=== PATIENT | female | born 1995 | race Hispanic/Latino ===

== ENCOUNTER 2022-04-18 19:45 | Inpatient (IN) | payer OTHER, SELFPAY ==
[2022-04-18 19:50] VITALS: BMI 26.6
[2022-04-18 20:21] VITALS: PULSE 111; O2SAT 97
[2022-04-18 20:23] VITALS: BP 119/71; PULSE 98
[2022-04-18 20:35] VITALS: TEMP 36.6
[2022-04-18 21:00] LABS: Absolute Lymphocyte Count 1.65 X10^3/uL (0.83-4.51); Absolute Neutrophil Count 7.8 X10^3/uL (2.0-7.7); Basophil# 0.02 X10^3/uL; Basophil% 0.2 % (0-1); Eosinophil# 0.07 X10^3/uL; Eosinophils% 0.7 % (0-5); Hematocrit 37.4 % (37-47); Hemoglobin 11.9 g/dL (12.0-15.0); Lymphocyte # 1.65 X10^3/ul (0.83-4.51); Lymphocyte % 16.2 % (19-41); Mean Corp Hgb Conc 31.8 g/dL (32-36); Mean Corpuscular Hgb 27.9 pg (27.0-32.0); Mean Corpuscular Volume 87.6 fL (81-99); Mean Platelet Vol. 12.2 fl (6.2-12.0); Monocyte# 0.53 X10^3/uL; Monocyte% 5.2 % (0-10); NRBC Flagged by Analyzer 0 % (0-5); Neutrophil # 7.82 X10^3/uL (2.7-7.7); Neutrophil % 76.8 % (47-70); Platelet Count 210 K/mm3 (150-450); RBC Distribution Width CV 14.6 % (11.6-14.6); RBC Distribution Width SD 46.7 fl (35.1-43.9); Red Blood Count 4.27 M/mm3 (4.2-5.4); White Blood Count 10.2 K/mm3 (4.4-11.0)
[2022-04-18] MEDS: miSOPROStol 25 MCG TABLET VAGINAL (21:14)
[2022-04-18 21:52] VITALS: BP 109/69; PULSE 85; TEMP 36.4
[2022-04-18 21:53] VITALS: PULSE 82; O2SAT 98
--- NOTE | 2022-04-18 23:45 | HP.PCM.OB_ITS ---
HPI - General General Date of Admission: 04/18/22 Date of Service: 04/18/22 Chief Complaint: induction HPI Narrative SERVANDO HAY, is a 26 F at 40w5d who presents for scheduled IOL. [facility] Medical History (Updated 04/18/22 @ 23:[address] Karen Saba, DO) Breast cyst Headache Migraine Home Medications wzetpcff-ads-Ac-FA 1 mg tablet 1 tab PO TID 04/18/22 [History Last Taken 04/18/22 17:00] Allergy/AdvReac Type Severity Reaction Status Date / Time No Known Allergies Allergy Verified 04/18/22 19:50 Surgical History (Updated 04/18/22 @ 20:58 by Sintia Lamas) History of surgery History of tonsillectomy and adenoidectomy Social History Smoking Status: Never smoker History Elective abortions Hx Para 0 Spontaneous abortions Hx # Term Pregnancies Ectopic pregnancies Hx # Pregnancies Multiple births # of living children NST FHR Rate Baby A Baseline: 130 Variability:: Moderate Accelerations:: 15 x 15 Decelerations:: None FHR Category:: Category I Uterine Activity:: No regular ctx's Vital Signs Vital Signs Vital Signs: 04/18/22 20:21 04/18/22 20:21 04/18/22 20:23 Temperature Temperature Source Pulse Rate 111 H Blood Pressure 119/71 BP Systolic 119 BP Diastolic 71 Pulse Ox 97 04/18/22 20:23 04/18/22 20:35 04/18/22 20:35 Temperature 97.9 F Temperature Source Temporal Pulse Rate 98 Blood Pressure BP Systolic BP Diastolic Pulse Ox 04/18/22 21:52 04/18/22 21:52 04/18/22 21:52 Temperature 97.5 F L Temperature Source Pulse Rate 85 Blood Pressure 109/69 BP Systolic 109 BP Diastolic 69 Pulse Ox 04/18/22 21:53 04/18/22 21:53 Temperature Temperature Source Pulse Rate 82 Blood Pressure BP Systolic BP Diastolic Pulse Ox 98 Weight Weight: 160 lb Body Mass Index (BMI) 26.6 Labs Labs Labs: Blood Type A POSITIVE Antibody Screen NEGATIVE Hct 37.4 % (37-47) Hgb 11.9 g/dL (12.0-15.0) L Assessment & Plan (1) 40 weeks gestation of : PLAN: Admit for scheduled induction of labor. Routine intrapartum care. Cytotec given. GBS negative. Epidural PRN. Estimated weight expected to be < 4500 g and pelvis adequate. Anticipate vaginal delivery. (2) Encounter for induction of labor:
[2022-04-19] VITALS (28 sets, daily range): BP systolic 99–149; BP diastolic 54–80; PULSE 64–96; RESP 16; TEMP 36–36.7; O2SAT 96–100
[2022-04-19] MEDS: miSOPROStol 25 MCG TABLET VAGINAL (01:56)
[2022-04-19] MEDS: Acetaminophen 500 MG Tablet PO (05:03)
[2022-04-19] MEDS: LACTATED RINGERS 500 ML 999 ML IV ×2 (05:49→09:43)
[2022-04-19] MEDS: Lactated Ringers 1,000 ML 50 ML IV (06:20)
[2022-04-19] MEDS: Oxytocin 15 Units/NS 250ml 15 UNITS/250 ML IV.SOLN 2 UNITS IV (07:57)
--- NOTE | 2022-04-19 09:06 | PCM.PN.OB ---
Subjective Subjective Pain feeling ctxs & some back pain. Objective Data Objective Data Vital Signs: Vital Signs Temp Pulse BP Pulse Ox 97.2 F L 80 149/79 H 98 04/19/22 07:30 04/19/22 08:33 04/19/22 08:33 04/19/22 08:33 Weight: 160 lb Body Mass Index (BMI) 26.6 Intake & Output: Intake and Output for Last 24 Hours 04/17/22 04/18/22 04/19/22 23:59 23:59 23:59 Intake Total 600 / 600 1500 / 1500 Balance 600 / 600 1500 / 1500 Lab / Micro Data Result Diagrams: 04/18/22 20:45 Labs: Laboratory Results - last 24 hr 04/18/22 20:45: WBC 10.2, RBC 4.27, Hgb 11.9 L, Hct 37.4, MCV 87.6, MCH 27.9, MCHC 31.8 L, RDW Std Deviation 46.7 H, RDW Coeff of Belen 14.6, Plt Count 210, MPV 12.2 H, Immature Gran % (Auto) 0.900, Neut % (Auto) 76.8 H, Lymph % (Auto) 16.2 L, [place] % (Auto) 5.2, Eos % (Auto) 0.7, Baso % (Auto) 0.2, Absolute Neuts (auto) 7.8 H, Absolute Lymphs (auto) 1.65, Nucleated RBC % 0 04/18/22 20:45: Blood Type TNP, Antibody Screen TNP 04/18/22 20:45: Blood Type A POSITIVE, Antibody Screen NEGATIVE NST FHR Rate Baby A Baseline: 120 Variability:: Moderate Accelerations:: 15 x 15 Decelerations:: None Uterine Activity:: Q 1-3 minutes Assessment & Plan (1) Encounter for induction of labor: PLAN: Plan Intracervical anderson placed & cvx 2/70/-2 Continue pitocin as per protocol
[2022-04-19] MEDS: 0.9% Normal Saline Single 100 ML IV.SOLN. INTRA-UTER (09:22)
[2022-04-19] MEDS: Ondansetron 4 MG/2 ML Vial IV (10:26)
[2022-04-19] MEDS: fentaNYL-bupivacaine (epidural) 100 ML BAG EPIDURAL (10:58)
--- NOTE | 2022-04-19 12:42 | PN.OBGYN_ITS ---
Subjective Subjective Patient comfortable with epidural Objective Data Objective Data Vital Signs: Vital Signs Temp Pulse BP Pulse Ox 96.8 F L 70 104/55 L 97 04/19/22 12:40 04/19/22 12:40 04/19/22 12:40 04/19/22 12:40 Weight: 160 lb Body Mass Index (BMI) 26.6 Intake & Output: Intake and Output for Last 24 Hours 04/17/22 04/18/22 04/19/22 23:59 23:59 23:59 Intake Total 600 / 600 1646.74 / 1646.74 Balance 600 / 600 1646.74 / 1646.74 Lab / Micro Data Result Diagrams: 04/18/22 20:45 Labs: Laboratory Results - last 24 hr 04/18/22 20:45: WBC 10.2, RBC 4.27, Hgb 11.9 L, Hct 37.4, MCV 87.6, MCH 27.9, MCHC 31.8 L, RDW Std Deviation 46.7 H, RDW Coeff of Belen 14.6, Plt Count 210, MPV 12.2 H, Immature Gran % (Auto) 0.900, Neut % (Auto) 76.8 H, Lymph % (Auto) 16.2 L, [place] % (Auto) 5.2, Eos % (Auto) 0.7, Baso % (Auto) 0.2, Absolute Neuts (auto) 7.8 H, Absolute Lymphs (auto) 1.65, Nucleated RBC % 0 04/18/22 20:45: Blood Type TNP, Antibody Screen TNP 04/18/22 20:45: Blood Type A POSITIVE, Antibody Screen NEGATIVE Physical Exam Narrative: cvx - 5/80/-2, AROM scant fluid, IUPC & FSE placed NST FHR Rate Baby A Baseline: 130 Variability:: Moderate Accelerations:: 15 x 15 Decelerations:: Variable Uterine Activity:: Q 1-3 minutes Assessment & Plan (1) Encounter for induction of labor: COMMENT: PPD#1 PLAN: Plan Routine care
[2022-04-19] MEDS: Amnioinfusion- 0.9% NS 1,000 ML IV.SOLN. 1000 ML INTRA-UTER (14:20)
[2022-04-19] MEDS: Lactated Ringers 1,000 ML 200 ML IV (14:23)
[2022-04-19] MEDS: miSOPROStol 200 MCG Tablet 1000 MCG RC (16:30)
--- NOTE | 2022-04-19 16:36 | EX.PCM.OBRPT ---
Maternal Data Information Final MAYELA: 04/13/22 Gestational age: 40&6 Vaginal Delivery Maternal Presentation Maternal Presentation: Medically Indicated Induction Type of Induction: Pitocin, Taylor Bulb, Amniotomy and Cytotec Operative Information Date of Procedure: 04/19/22 Pre-Operative Diagnosis: Postdates Post-Operative Diagnosis: Same Surgery / Procedure Performed: Spontaneous Vaginal Delivery Type of Anesthesia: Epidural Drain: Taylor to straight drain Estimated Blood Loss: 450ml Findings Description of Procedure: Patient prepped & draped when C/C/+2. She pushed well to deliver the head. head gently guided to allow delivery of anterior and posterior shoulders. No excess traction placed on head. Body delivered and 3VC clamped & cut in delayed fashion. Placenta delivered with gentle traction and good uterine tone obtained. Area on cervix with some bleeding but no laceration. 2 figure of 8 sutures placed using 3-0 vicryl to obtain excellent hemostasis. Presentation: MIYA Amniotic Membrane Rupture Type: Artificial Amniotic Fluid Description: Clear Placental Delivery Description: Expressed Placenta Disposition: [facility] Specimen(s) Removed: Placenta Cord Vessel Description: 3 Vessels Cord Entanglement: Around neck x 1, loose Nuchal Cord Compression: Without compression Infant A Gender: Female (Tyra) (1 minute): 8 (5 minute): 9 Delayed Cord Clamping: Yes Post Vaginal Delivery Medications Given After Delivery: IV Pitocin and - (Rectal cytotec) Episiotomy Description: None Laceration: 1st degree (bilateral vaginal - repaired with 3-0 vicryl) Complication Complications: None
[2022-04-19] MEDS: Oxytocin 15 Units/NS 250ml 15 UNITS/250 ML IV.SOLN 83 UNITS IV (17:30)
[2022-04-19] MEDS: Acetaminophen 500 MG Tablet 1000 MG PO (17:55)
[2022-04-19] MEDS: Ibuprofen 600 MG Tablet PO (23:28)
[2022-04-20] VITALS (8 sets, daily range): BP systolic 104–113; BP diastolic 53–63; PULSE 69–90; RESP 14–18; TEMP 36.3–36.8; O2SAT 97–98
[2022-04-20] MEDS: Acetaminophen 500 MG Tablet 1000 MG PO (01:07)
[2022-04-20] MEDS: Ibuprofen 600 MG Tablet PO ×2 (05:29→12:27)
--- NOTE | 2022-04-20 09:55 | PCM.PN.OB ---
Subjective Subjective Denies complaints Objective Data Objective Data Vital Signs: Vital Signs Temp Pulse Resp BP Pulse Ox O2 Del Method 97.5 F L 87 14 108/63 97 Room Air 04/20/22 02:19 04/20/22 09:33 04/20/22 02:19 04/20/22 09:33 04/20/22 09:33 04/20/22 02:19 Oxygen Delivery Method Room Air Weight: 160 lb Body Mass Index (BMI) 26.6 Intake & Output: Intake and Output for Last 24 Hours 04/18/22 04/19/22 04/20/22 23:59 23:59 23:59 Intake Total 600 / 600 3878.26 / 3878.26 Output Total 800 / 800 Balance 600 / 600 3078.26 / 3078.26 Lab / Micro Data Result Diagrams: 04/18/22 20:45 Physical Exam Const alert, oriented x3 and no apparent distress HEENT normocephalic GI soft to palpation, non-tender and non-distended GI Narrative: fundus firm, mid & below umbilicus Extremity normal to inspection and no calf tenderness Assessment & Plan (1) Vaginal delivery: COMMENT: PPD#1 PLAN: Plan Routine care D/c home later today per patient request
--- NOTE | 2022-04-20 09:56 | DCINST_ITS ---
Discharge Instructions Diet Discharge Diet: No restrictions Activity Discharge Activity: May Shower May resume sexual activity in: 6 weeks Weight Bearing Status: Weight bearing as tolerated Dressing / Incision Call your doctor if you observe: Fever of 101 or Higher, Coldness, Increased Pain, Change in Color, Inability to urinate, Inability to have a bowel movement, Using more than 1 pad per hour, Shortness of breath, Dizziness, Fainting spells, Chest pain, Increased palpitations (irregular heartbeat), Calf discomfort and Uncontrolled pain Follow Up Care Please Follow Up With: Tommy Askew MD When: Follow up in 2 and 6 weeks for visits. Test Results: Test results from this visit will be discussed in further detail at your follow- up appointment, if applicable. Discharge Plan Admission Admit Date/Time: 04/18/22 19:45 Primary Reason for Your Visit: Vaginal delivery Attending Provider: Tommy Askew Discharge Orders/Prescriptions Prescriptions: New acetaminophen 500 mg Tablet 1,000 mg PO Q6H PRN PRN (Reason: Pain 1-10 Or Fever) Qty: 0 0RF ibuprofen 600 mg Tablet 600 mg PO Q6H PRN PRN (Reason: Pain Score 1-3) Qty: 0 0RF Continued lcjwaztr-koq-Xy-FA 1 mg Tablet 1 tab PO TID Disposition Disposition (needs filled in before D/C Order can be placed): Home, Self Care
[2022-04-20] MEDS: FLU VACC QS2022-23(6MOS UP)/PF 60 MCG/0.5 ML SYRINGE IM (12:28)
[2022-04-20] MEDS: Benzocaine/Lanolin/Aloe Vera 1 SPRAY EACH TOPICAL (12:29)
== END 2022-04-20 19:40 | disposition home or self-care (01) | DRG 807 ==
PROVIDERS: Admitting Provider Obstetrics & Gynecology; Visit Provider Obstetrics & Gynecology
DX: O48.0 Post-term pregnancy (principal); Z37.0 Single live birth; O69.81X0 Labor and delivery complicated by cord around neck, without compression, not applicable or unspecified; O70.0 First degree perineal laceration during delivery; Z3A.40 40 weeks gestation of pregnancy
CPT/HCPCS: 59025; 59050; 85025; 86850; 86900; 86901; 99218; J7030; J7120; 90686; G0378; J2405

== ENCOUNTER 2024-04-15 08:14 | Inpatient (IN) | payer OTHER, SELFPAY ==
[2024-04-15] VITALS (45 sets, daily range): BP systolic 89–122; BP diastolic 50–79; PULSE 57–98; RESP 15–20; TEMP 36.1–36.8; O2SAT 96–100; BMI 24.1
[2024-04-15] MEDS: Lactated Ringers 1,000 ML 50 ML IV (08:40)
[2024-04-15 08:45] LABS: Absolute Lymphocyte Count 2.56 X10^3/uL (0.83-4.51); Absolute Neutrophil Count 6.5 X10^3/uL (2.0-7.7); Basophil# 0.06 X10^3/uL; Basophil% 0.6 % (0-1); Eosinophil# 0.07 X10^3/uL; Eosinophils% 0.7 % (0-5); Hematocrit 39.2 % (37-47); Lymphocyte # 2.56 X10^3/ul (0.83-4.51); Lymphocyte % 26.1 % (19-41); Mean Corp Hgb Conc 33.2 g/dL (32-36); Mean Corpuscular Hgb 28.1 pg (27.0-32.0); Mean Corpuscular Volume 84.8 fL (81-99); Mean Platelet Vol. 11.8 fl (6.2-12.0); Monocyte# 0.49 X10^3/uL; NRBC Flagged by Analyzer 0 % (0-5); Neutrophil # 6.53 X10^3/uL (2.7-7.7); Neutrophil % 66.7 % (47-70); Platelet Count 219 K/mm3 (150-450); RBC Distribution Width CV 14.3 % (11.6-14.6); RBC Distribution Width SD 43.8 fl (35.1-43.9); Red Blood Count 4.62 M/mm3 (4.2-5.4); White Blood Count 9.8 K/mm3 (4.4-11.0)
[2024-04-15 09:28] LABS: Syphilis Antibodies Non-reactive
[2024-04-15] MEDS: Oxytocin 15 Units/NS 250ml 15 UNITS/250 ML IV.SOLN 2 UNITS IV (09:47)
[2024-04-15] MEDS: 0.9% Normal Saline Single 100 ML IV.SOLN. INTRA-UTER (10:44)
--- NOTE | 2024-04-15 10:44 | PCM.PN.BLA ---
Progress Note pt doing well. comfortable and without any complaints. Assessment & Plan Assessment/Plan (1) Encounter for induction of labor: PLAN: Cvx /-1, vertex. Intracervical anderson placed in usual fashion with a Stylet and filled with 30 cc saline. Category 1 tracing. call center analyst provider updated. (2) 40 weeks gestation of :
[2024-04-15] MEDS: Lactated Ringers 1,000 ML 999 ML IV ×2 (12:20→17:17)
[2024-04-15] MEDS: fentaNYL-bupivacaine (epidural) 100 ML BAG EPIDURAL ×2 (13:47→20:00)
--- NOTE | 2024-04-15 16:08 | PCM.PN.BLA ---
Progress Note pt seen at bedside, AROM performed- clear fluid. pt comfortable with epidural in place.
[2024-04-15] MEDS: Ondansetron 4 MG/2 ML Vial IV ×2 (16:14→20:18)
--- NOTE | 2024-04-15 17:02 | PCM.HP.OB ---
HPI - General General Date of Admission: 04/15/24 HPI Narrative SERVANDO HAY, is a 28 F at 39.6 weeks gestation who presents for elective induction of labor. Maternal Data Information MAYELA Calculator Estimated Delivery Date Method Current WG Current Estimate 04/16/24 Manual 39w 6d [facility]SH [facility] Medical History (Updated 04/15/24 @ 17:04 by Elaina Page CNM) Hand, foot, and mouth disease Alpha thalassemia silent carrier Vaginal delivery Breast cyst Migraine Headache Home Medications ?Medication ?Instructions ?Recorded ?Last Taken ?Type lbeqwxex-wxk-Mx-FA 1 mg 1 tab PO TID 04/18/22 04/14/24 09:15 History tablet Allergy/AdvReac Type Severity Reaction Status Date / Time No Known Allergies Allergy Verified 04/15/24 08:13 Surgical History (Updated 04/18/22 @ 20:58 by Sintia Russell) History of surgery History of tonsillectomy and adenoidectomy Social History Smoking Status: Never smoker History Elective abortions Hx Para 1 Spontaneous abortions Hx # Term Pregnancies Ectopic pregnancies Hx # Pregnancies Multiple births # of living children ROS Eyes Eyes: Denies blurry vision, change in vision or spots in vision ENT HEENT: Denies dizziness or headache(s) Cardiovascular Cardiovascular: Denies abdominal pain, chest pain or dyspnea Respiratory/Chest Respiratory/Chest: Denies cough, dyspnea, shortness of breath at rest or shortness of breath with exertion Gastrointestinal Gastrointestinal: Denies abdominal pain, diarrhea or vomiting Genitourinary Genitourinary: Denies change in urinary stream, difficulty urinating or dysuria Musculoskeletal Musculoskeletal: Reports none Integumentary Integumentary: Denies rash Neurologic Neurologic: Denies dizziness, headache(s), memory loss or weakness Psychiatric Psychiatric: Reports none Vital Signs Vital Signs Vital Signs: 04/15/24 08:28 04/15/24 08:28 04/15/24 08:29 Temperature Temperature Source Pulse Rate 81 92 Respiratory Rate Blood Pressure 114/70 BP Systolic 114 BP Diastolic 70 Pulse Ox 04/15/24 08:29 04/15/24 08:29 04/15/24 08:29 Temperature Temperature Source Temporal Pulse Rate Respiratory Rate Blood Pressure 114/70 BP Systolic 114 BP Diastolic 70 Pulse Ox 96 04/15/24 08:29 04/15/24 08:29 04/15/24 08:29 Temperature Temperature Source Pulse Rate 98 Respiratory Rate 16 Blood Pressure BP Systolic BP Diastolic Pulse Ox 98 04/15/24 08:29 04/15/24 09:51 04/15/24 09:51 Temperature 97.8 F Temperature Source Pulse Rate 88 Respiratory Rate Blood Pressure 99/61 BP Systolic 99 BP Diastolic 61 Pulse Ox 04/15/24 09:51 04/15/24 10:46 04/15/24 10:46 Temperature Temperature Source Temporal Pulse Rate Respiratory Rate 16 16 Blood Pressure BP Systolic BP Diastolic Pulse Ox 04/15/24 10:46 04/15/24 10:46 04/15/24 10:47 Temperature 98.0 F Temperature Source Pulse Rate Respiratory Rate Blood Pressure 110/73 BP Systolic 110 BP Diastolic 73 Pulse Ox 99 04/15/24 10:47 04/15/24 12:15 04/15/24 12:15 Temperature Temperature Source Pulse Rate 68 73 Respiratory Rate Blood Pressure 93/55 L BP Systolic 93 BP Diastolic 55 Pulse Ox 04/15/24 12:15 04/15/24 12:15 04/15/24 12:15 Temperature Temperature Source Temporal Pulse Rate Respiratory Rate 16 Blood Pressure BP Systolic BP Diastolic Pulse Ox 98 04/15/24 12:15 04/15/24 12:15 04/15/24 13:05 Temperature 98.2 F Temperature Source Pulse Rate Respiratory Rate Blood Pressure 106/68 BP Systolic 106 BP Diastolic 68 Pulse Ox 99 04/15/24 13:05 04/15/24 13:26 04/15/24 13:26 Temperature Temperature Source Pulse Rate 78 80 Respiratory Rate Blood Pressure 121/76 H BP Systolic 121 BP Diastolic 76 Pulse Ox 04/15/24 13:27 04/15/24 13:27 04/15/24 13:30 Temperature Temperature Source Temporal Pulse Rate 80 Respiratory Rate Blood Pressure BP Systolic BP Diastolic Pulse Ox 99 04/15/24 13:30 04/15/24 13:30 04/15/24 13:31 Temperature 98.0 F Temperature Source Pulse Rate Respiratory Rate 15 Blood Pressure 122/79 H BP Systolic 122 BP Diastolic 79 Pulse Ox 04/15/24 13:31 04/15/24 13:32 04/15/24 13:32 Temperature Temperature Source Pulse Rate 82 81 Respiratory Rate Blood Pressure BP Systolic BP Diastolic Pulse Ox 98 04/15/24 13:36 04/15/24 13:36 04/15/24 13:37 Temperature Temperature Source Pulse Rate 83 83 Respiratory Rate Blood Pressure 117/65 BP Systolic 117 BP Diastolic 65 Pulse Ox 04/15/24 13:37 04/15/24 13:40 04/15/24 13:43 Temperature Temperature Source Pulse Rate Respiratory Rate 15 Blood Pressure 105/56 L BP Systolic 105 BP Diastolic 56 Pulse Ox 98 04/15/24 13:43 04/15/24 13:43 04/15/24 13:45 Temperature Temperature Source Pulse Rate 84 Respiratory Rate 16 Blood Pressure BP Systolic BP Diastolic Pulse Ox 99 04/15/24 13:46 04/15/24 13:46 04/15/24 13:48 Temperature Temperature Source Pulse Rate 83 82 Respiratory Rate Blood Pressure 98/50 L BP Systolic 98 BP Diastolic 50 Pulse Ox 04/15/24 13:48 04/15/24 13:50 04/15/24 13:51 Temperature Temperature Source Pulse Rate Respiratory Rate 15 Blood Pressure 102/54 L BP Systolic 102 BP Diastolic 54 Pulse Ox 97 04/15/24 13:51 04/15/24 13:53 04/15/24 13:53 Temperature Temperature Source Pulse Rate 80 81 Respiratory Rate Blood Pressure BP Systolic BP Diastolic Pulse Ox 96 04/15/24 13:56 04/15/24 13:56 04/15/24 13:58 Temperature Temperature Source Pulse Rate 79 79 Respiratory Rate Blood Pressure 104/59 L BP Systolic 104 BP Diastolic 59 Pulse Ox 04/15/24 13:58 04/15/24 14:01 04/15/24 14:01 Temperature Temperature Source Pulse Rate 93 Respiratory Rate Blood Pressure 112/56 L BP Systolic 112 BP Diastolic 56 Pulse Ox 96 04/15/24 14:03 04/15/24 14:03 04/15/24 14:06 Temperature Temperature Source Pulse Rate 84 Respiratory Rate Blood Pressure 101/55 L BP Systolic 101 BP Diastolic 55 Pulse Ox 96 04/15/24 14:06 04/15/24 14:28 04/15/24 14:28 Temperature Temperature Source Pulse Rate 86 75 Respiratory Rate Blood Pressure 89/53 L BP Systolic 89 BP Diastolic 53 Pulse Ox 04/15/24 14:28 04/15/24 14:28 04/15/24 14:28 Temperature 98.2 F Temperature Source Temporal Pulse Rate Respiratory Rate 15 Blood Pressure BP Systolic BP Diastolic Pulse Ox 04/15/24 15:02 04/15/24 15:02 04/15/24 15:35 Temperature Temperature Source Temporal Pulse Rate 76 Respiratory Rate Blood Pressure 93/55 L BP Systolic 93 BP Diastolic 55 Pulse Ox 04/15/24 15:35 04/15/24 15:35 04/15/24 15:35 Temperature 97.1 F L Temperature Source Pulse Rate Respiratory Rate 15 Blood Pressure BP Systolic BP Diastolic Pulse Ox 99 04/15/24 15:45 04/15/24 15:45 04/15/24 15:47 Temperature Temperature Source Pulse Rate 72 72 Respiratory Rate Blood Pressure 93/52 L BP Systolic 93 BP Diastolic 52 Pulse Ox 04/15/24 15:47 Temperature Temperature Source Pulse Rate Respiratory Rate Blood Pressure BP Systolic BP Diastolic Pulse Ox 99 Weight Weight: 145 lb Body Mass Index (BMI) 24.1 Physical Exam Const alert, oriented x3 and no apparent distress General Appearance: cooperative Orientation / Consciousness: awake Exam Limitations: no limitations HEENT normocephalic Head and Scalp: normal to inspection Eyes General Eye: normal appearance of both eyes Neck full ROM and no lymphadenopathy Lymph Lymphatic: no lymphadenopathy noted Chest inspection of chest normal Resp normal respiratory effort, normal air movement and clear to auscultation bilaterally Effort and Inspection: able to speak in complete sentences and symmetric chest movement Cardio regular rate and regular rhythm GI normal to inspection, nondistended, normoactive bowel sounds Manual OB Exam: presentation cephalic Back/Spine normal ROM Extremity full ROM and no calf tenderness Skin no rashes or lesions noted General Skin Exam: no breakdown Neuro oriented x3 and CN's II-XII intact bilaterally Psych mental status grossly normal and thought process normal Labs Labs Labs: Blood Type A POSITIVE Antibody Screen NEGATIVE Hct 39.2 % (37-47) Hgb 13.0 g/dL (12.0-15.0) Syphilis Total Ab Non-reactive Assessment & Plan (1) 39 weeks gestation of : (2) Alpha thalassemia silent carrier: (3) Encounter for elective induction of labor: (4) Uterus bicornis affecting : PLAN: Plan GBS negative Pitocin IV to start at 2 mu/min and increasing per protocol Epidural when indicated Dr. Chatman collaborating physician Anticipate
[2024-04-15] MEDS: Amnioinfusion- 0.9% NS 1,000 ML IV.SOLN. 1000 ML INTRA-UTER (18:05)
--- NOTE | 2024-04-15 19:22 | PN.OBGYN_ITS ---
Subjective Subjective Patient seen at bedside. Comfortable with epidural. Some nausea. Denies pain. Objective Data Objective Data Vital Signs: Vital Signs Temp Pulse Resp BP Pulse Ox 97.0 F L 72 16 116/64 100 04/15/24 18:07 04/15/24 18:07 04/15/24 18:07 04/15/24 18:05 04/15/24 18:07 Weight: 145 lb Body Mass Index (BMI) 24.1 Intake & Output: Intake and Output for Last 24 Hours 04/13/24 04/14/24 04/15/24 23:59 23:59 23:59 Intake Total 2825.56 / 2825.56 Output Total 1300 / 1300 Balance 1525.56 / 1525.56 Lab / Micro Data 04/15/24 08:30 Labs: Laboratory Results - last 24 hr 04/15/24 08:30: WBC 9.8, RBC 4.62, Hgb 13.0, Hct 39.2, MCV 84.8, MCH 28.1, MCHC 33.2, RDW Std Deviation 43.8, RDW Coeff of Belen 14.3, Plt Count 219, MPV 11.8, Immature Gran % (Auto) 0.900, Neut % (Auto) 66.7, Lymph % (Auto) 26.1, [place] % (Auto) 5.0, Eos % (Auto) 0.7, Baso % (Auto) 0.6, Absolute Neuts (auto) 6.5, Absolute Lymphs (auto) 2.56, Nucleated RBC % 0, Syphilis Total Ab Non-reactive, Blood Type A POSITIVE, Antibody Screen NEGATIVE Assessment & Plan (1) Uterus bicornis affecting : (2) Encounter for elective induction of labor: (3) Alpha thalassemia silent carrier: (4) 39 weeks gestation of : PLAN: Plan Cat. 2 tracing with occasional variables and some early decelerations Amnio infusion running at 100 cc/hr Pitocin at 4 mu/min CE /-2 Dr. Saba /Lurdes updated on exam and tracing Continue position changes and monitor closely
[2024-04-15] MEDS: Lactated Ringers 1,000 ML 200 ML IV (21:35)
[2024-04-15] MEDS: LACTATED RINGERS 500 ML 999 ML IV (21:52)
--- NOTE | 2024-04-15 22:46 | PCM.PN.CNM ---
Subjective Subjective Patient seen at bedside due to continued variable decelerations. Amnio infusion currently running. Objective Data Objective Data Vital Signs: Vital Signs Temp Pulse Resp BP Pulse Ox 98.0 F 74 16 109/69 100 04/15/24 22:24 04/15/24 22:25 04/15/24 22:24 04/15/24 22:24 04/15/24 22:25 Weight: 145 lb Body Mass Index (BMI) 24.1 Intake & Output: Intake and Output for Last 24 Hours 04/13/24 04/14/24 04/15/24 23:59 23:59 23:59 Intake Total 4109.51 / 4109.51 Output Total 1999 Balance 2109.51 / 2109.51 Lab / Micro Data 04/15/24 08:30 Labs: Laboratory Results - last 24 hr 04/15/24 08:30: WBC 9.8, RBC 4.62, Hgb 13.0, Hct 39.2, MCV 84.8, MCH 28.1, MCHC 33.2, RDW Std Deviation 43.8, RDW Coeff of [place]en 14.3, Plt Count 219, MPV 11.8, Immature Gran % (Auto) 0.900, Neut % (Auto) 66.7, Lymph % (Auto) 26.1, [place] % (Auto) 5.0, Eos % (Auto) 0.7, Baso % (Auto) 0.6, Absolute Neuts (auto) 6.5, Absolute Lymphs (auto) 2.56, Nucleated RBC % 0, Syphilis Total Ab Non-reactive, Blood Type A POSITIVE, Antibody Screen NEGATIVE Assessment & Plan (1) Category II heart rate tracing during maternal care in third trimester: (2) Variable deceleration: (3) Uterus bicornis affecting : (4) Encounter for elective induction of labor: (5) Alpha thalassemia silent carrier: (6) 39 weeks gestation of : PLAN: Plan CE - 5.5/70/-1- cervix beginning to swell Discussed with patient she has made minimal cervical change since 1930 and the inability to turn up Pitocin due to heart rate decelerations. Dr. Saba in route for evaluation. Patient offered primary section and declines at this time. Will reevaluate cervical change in 1 hour. Patient aware if no cervical change and/or intolerance continues that it is recommended for a primary section.
--- NOTE | 2024-04-15 23:39 | PCM.PN.BLA ---
Progress Note pt comfortable with epidural. Assessment & Plan Assessment/Plan (1) Variable deceleration: PLAN: At bedside to re examine patient. Cvx 5-6/70/-1, vertex. Discussed with patient persistent category 2 tracing despite resuscitative measures. The nursing staff has called her 6 cm four hours ago, and the CNM has called her 5-6 cm four hours ago. Discussed a section is recommended for persistent category 2 in latent phase, and persistent category 2 in active phase without normal progress. Discussed unable to titrate Pitocin given intolerance to labor. Discussed r/b/a section vs continuing to monitor. The patient elects for a section at this time. Consent obtained. (2) Category II heart rate tracing during maternal care in third trimester: (3) Encounter for elective induction of labor: (4) 39 weeks gestation of :
[2024-04-15] MEDS: Acetaminophen 500 MG Tablet PO (23:40)
[2024-04-16] VITALS (21 sets, daily range): BP systolic 101–120; BP diastolic 53–78; PULSE 62–85; RESP 14–19; TEMP 36.3–36.9; O2SAT 96–100
[2024-04-16] MEDS: Sodium Citrate/Citric Acid 30 ML UDC PO (00:04)
[2024-04-16] MEDS: Oxytocin 15 Units/NS 250ml 15 UNITS/250 ML IV.SOLN 2 UNITS IV (00:33)
--- NOTE | 2024-04-16 00:54 | OB.VAGDELI_ITS ---
Assessment & Plan (1) Category II heart rate tracing during maternal care in third trimester: (2) Encounter for elective induction of labor: (3) 39 weeks gestation of : Maternal Data Information MAYELA Calculator Estimated Delivery Date Method Current WG Current Estimate 04/16/24 Manual 40w 0d Vaginal Delivery Maternal Presentation Maternal Presentation: Elective Induction Type of Induction: Pitocin, Taylor Bulb and Amniotomy Vaginal Delivery Information Procedure Performed: Spontaneous Vaginal Delivery Surgeon/Practitioner: Karen Saba Date of Procedure: 04/16/24 Pre-Procedure Diagnosis: 39 week gestation, elective induction of labor Post-Procedure Diagnosis: as above Type of anesthesia: Epidural Special Medications: none Estimated Blood Loss: 100 Fluids Replaced: N/A Findings Description of procedure: Once we were back in the OR, cervix re examined and . The patient was prepped for a vaginal delivery. With a few contractions the head was delivered in DYLON position. A loose nuchal cord without compression x 2 was reduced. The anterior shoulder was delivered with gentle downward traction, followed by the posterior shoulder and body without any excessive traction, force, or delay. A vigorous VFI was placed on maternal abdomen. The cord was clamped and cut after a 60 second delay by FOB. The placenta delivered spontaneously and was noted to be normal appearing and intact with a 3 VC. Cord gases were sent. The uterus was explored x 1. Fundus firm and bleeding scant. No lacerations noted. Procedure findings: Vigorous VFI in DYLON position. Loose nuchal cord without compression x 2. Normal appearing placenta. No lacerations. Presentation: Vertex Amniotic Membrane Rupture Type: Artificial Amniotic Fluid Description: Clear Placental Delivery Description: Spontaneous Specimen collected: No Cord Vessel Description: 3 Vessels Cord Entanglement: Around neck x 2, loose Nuchal Cord Compression: Without compression Cord Gases: ABG and VBG Infant A Gender: Female Delayed Cord Clamping: Yes [place] pediatric physiatrist: No Post Vaginal Deli Medications given after delivery: IV Pitocin Episiotomy Description: None Laceration: None Complication Complications: No
[2024-04-16] MEDS: Oxytocin 15 Units/NS 250ml 15 UNITS/250 ML IV.SOLN 83 UNITS IV (01:16)
[2024-04-16] MEDS: 0.9% Saline Lock 10 ML Syringe IV (05:47)
--- NOTE | 2024-04-16 07:22 | NURSING ---
This RN reviewed and agrees with all documentation done by Tania Franco RN.
[2024-04-16] MEDS: Ibuprofen 600 MG Tablet PO ×2 (12:01→23:55)
[2024-04-16] MEDS: Acetaminophen 500 MG Tablet 1000 MG PO (17:45)
[2024-04-17] MEDS: Acetaminophen 500 MG Tablet 1000 MG PO (02:01)
[2024-04-17 05:58] VITALS: BP 97/63; PULSE 72; RESP 16; TEMP 36.6; O2SAT 98
[2024-04-17] MEDS: Ibuprofen 600 MG Tablet PO (06:41)
--- NOTE | 2024-04-17 07:20 | PCM.PN.OB ---
Subjective Subjective Doing well per patient and nursing staff. Ambulating and taking PO without difficulty. Voiding and passing flatus. Pain controlled. , services for assistance. Denies headache, visual changes, chest pain, shortness of breath, leg pain or increased bleeding. Lochia normal. Objective Data Objective Data Vital Signs: Vital Signs Temp Pulse Resp BP Pulse Ox O2 Del Method 97.8 F 72 16 97/63 98 Room Air 04/17/24 05:58 04/17/24 05:58 04/17/24 05:58 04/17/24 05:58 04/17/24 05:58 04/17/24 05:58 Oxygen Delivery Method Room Air Weight: 145 lb Body Mass Index (BMI) 24.1 Intake & Output: Intake and Output for Last 24 Hours 04/15/24 04/16/24 04/17/24 23:59 23:59 23:59 Intake Total 4115.64 / 4115.64 991.76 / 991.76 Output Total 2900 / 2900 2900 / 2900 Balance 1215.64 / 1215.64 -1908.24 / -1908.24 Lab / Micro Data 04/15/24 08:30 ROS Constitutional Constitutional: Reports systems reviewed and no addt'l complaints, except as documented; Denies headache(s) Eyes Eyes: Denies acute decrease in peripheral vision, blurry vision or change in vision ENT HEENT: Reports systems reviewed and no addt'l complaints, except as documented Cardiovascular Cardiovascular: Denies chest pain or dizziness Respiratory/Chest Respiratory/Chest: Denies cough, dyspnea, dyspnea on exertion, shortness of breath at rest or shortness of breath with exertion Gastrointestinal Gastrointestinal: Denies abdominal pain, diarrhea, nausea or vomiting Genitourinary Genitourinary: Denies abdominal discomfort Musculoskeletal Musculoskeletal: Denies limited range of motion Integumentary Integumentary: Reports systems reviewed and no addt'l complaints, except as documented Neurologic Neurologic: Reports systems reviewed and no addt'l complaints, except as documented Psychiatric Psychiatric: Reports systems reviewed and no addt'l complaints, except as documented Endocrine Endocrinology: Reports systems reviewed and no addt'l complaints, except as documented Hematologic/Lymphatic Hematologic/Lymphatic: Reports systems reviewed and no addt'l complaints, except as documented Allergic/Immunologic Allergic/Immunologic: Reports systems reviewed and no addt'l complaints, except as documented Physical Exam Const alert and oriented x3 General Appearance: cooperative Orientation / Consciousness: awake, oriented to person, oriented to place and oriented to time Exam Limitations: no limitations HEENT normocephalic Head and Scalp: normal to inspection, normocephalic and atraumatic Face and Sinus: normal facial exam Eyes General Eye: normal appearance of both eyes Neck full ROM Chest Chest: symmetrical chest wall rise Resp normal respiratory effort and normal air movement Auscultation: clear to auscultation bilaterally Cardio regular rate, regular rhythm, S1 normal heart sound, S2 normal heart sound, no murmurs, no rub, no gallops and no clicks GI normal to inspection, nondistended, normoactive bowel sounds and non-tender appearance of the vagina normal Bladder / Kidney Exam: no CVA tenderness Back/Spine normal ROM Extremity normal to inspection and full ROM Skin no rashes or lesions noted Neuro oriented x3, CN's II-XII intact bilaterally and moves all extremities Sensorium / Orientation: awake, alert and oriented to person Motor Exam: clonus absent Deep Tendon Reflexes: Rt Patellar (L4): 2+ and Lt Patellar (L4): 2+ Assessment & Plan (1) Vaginal delivery: PLAN: Plan 1) Routine care, PPD #1 2) Vitals signs stable 3) Pain controlled 4) , services PRN 5) D/C home 6) Follow up in 2 weeks and 6 weeks
--- NOTE | 2024-04-17 08:11 | PCM.DC.SUM ---
Providers Date of Admission: 04/15/24 Primary Care Physician: No Primary Care Phys Reason For Visit: VAGINAL DELIVERY PER Diagnosis Discharge Diagnosis (1) Vaginal delivery: Status: Acute Code(s): O80 - Encounter for full-term uncomplicated delivery Plan 1) Routine care, PPD #1 2) Vitals signs stable 3) Pain controlled 4) , services PRN 5) D/C home 6) Follow up in 2 weeks and 6 weeks Medications at Discharge Home Medications [id number] 1 mg tablet 1 tab PO TID 04/18/22 acetaminophen 500 mg tablet 1,000 mg (2 x 500 mg) PO Q6H PRN PRN Pain 1-10 Or Fever #0 tabs 04/17/24 ibuprofen 600 mg tablet 600 mg PO Q6H PRN PRN Pain Score 1-10 #0 tabs 04/17/24 Hospital Course Summary of Care Provided Minutes Spent on Discharge: 15 Weight / BMI Weight Weight: 145 lb Body Mass Index (BMI) 24.1 ABG / Lab / Microbiology Data 04/15/24 08:30 D/C Instructions Discharge Diet: No restrictions Discharge Activity: Return to Normal Activity, May Drive, May Shower and May Take a Tub Bath May resume sexual activity in: 6 weeks Weight Bearing Status: Full weight bearing Call your doctor if you observe: Fever of 101 or Higher, Inability to urinate, Using more than 1 pad per hour, Shortness of breath, Chest pain, Increased palpitations (irregular heartbeat), Calf discomfort and Uncontrolled pain DC O2, CPAP, BIPAP Needs Additional Home O2 Discharge instructions: No DC home with Oxygen: No Please Follow Up With: Evi Titus CNM When: 2 week virtual visit and 6 week visit Meaningful Use Info Meaningful Use Meaningful Use Diagnoses (Choose all that apply): None applicable Ischemic Stroke Statin Dosing Therapy Reference: STATIN DOSE THERAPY REFERENCE: * Patients > 75 years receive moderate or high dose statin therapy. * Patients 75 years or YOUNGER should receive HIGH intensity statin dose unless contraindicated. You will be required to document reason for non-treatment if statin daily dose does not meet guidelines. HIGH DOSE STATIN THERAPY DAILY Atorvastatin > than or = to 40 mg Rosuvastatin > than or = to 20 mg Amlodipine + Atorvastatin > than or = to 2.5/40 mg Ezetimibe + Simvastatin 10/80 mg Simvastatin 80mg Discharge Plan Admission Admit Date/Time: 04/15/24 08:14 Primary Reason for Your Visit: Vaginal Delivery Attending Provider: Karen Saba Primary Care Provider: Care Physician,Marilyn Primary Discharge Orders/Prescriptions Prescriptions: New acetaminophen 500 mg Tablet 1,000 mg PO Q6H PRN PRN (Reason: Pain 1-10 Or Fever) Qty: 0 0RF ibuprofen 600 mg Tablet 600 mg PO Q6H PRN PRN (Reason: Pain Score 1-10) Qty: 0 0RF Continued [id number] 1 mg Tablet 1 tab PO TID Referrals / Follow Up: Care Physician,No Primary [Primary Care Provider] - Disposition Disposition (needs filled in before D/C Order can be placed): Home, Self Care
[2024-04-17 10:20] VITALS: BP 103/72; PULSE 72; RESP 16; TEMP 36.2; O2SAT 97
--- NOTE | 2024-04-26 11:33 | CASEMGMT ---
Social Work Assessment Labor and Delivery Unit Patient Address: [address] [place] [address] Phone number: [phone] Date of Referral: 04/15/24 Time of Referral:?1023 Referred By: Evi Titus Date of Intervention: ??04/16/24 Time of Intervention:? 1230 Reason for Referral:? patients father is an alcoholic Sw completed chart review and acknowledges social work consult due to patient's father being an alcoholic. Sw presented to bedside and introduced self to mother of baby (MOB- Sherice) and father of baby (FOB- Azar). Sw completed psychosocial assessment. History obtained from: medical records, MOB and FOB. ? Household composition: Currently residing in the family home is ELISABETH, JOSSIE, their 2 year old daughter, Kizzy and baby when ready for discharge. Parents deny any issues or concerns with housing, reporting that it is safe and secure. Patient's parent/guardian status:? ?MOB states that she and JOSSIE have been together for 10 years after starting to date while in high school together. No concerns regarding domestic violence or intimate partner violence. [place] baby is second baby for both parents together. Medical History: ?ELISABETH is 28 year old female who is 3, para 1- now 2 following labor and delivery of . ELISABETH received routine care during with [facility]. ELISABETH presented to hospital for induction of labor. ELISABETH delivered baby via spontaneous vaginal delivery at 40 weeks gestation on 04/16/24. Baby girl, named Sondra De Dios, was born weighing 7lb 1oz with apgars of 8 and 9 at one and five minutes of life, respectfully. ELISABETH states that she is breast feeding and baby will be followed by Dr. Arzola. Educational Status:? Both parents graduated high school and obtained some college, but no degree. Parents deny difficulties with reading, learning or comprehension. Financial Status: Both parents are employed outside of the home. FOB works as a director of cardiology service line and MOB works in [email or web address]. Infant Supplies: Parents have everything that they need for baby, including: car seat, safe sleep space, clothes, diapers and wipes. Childcare/Caregiver(s):? When ELISABETH returns to work, the baby and her older sister will both attend day care. Transportation:?? Both parents have their drivers license and reliable means of transportation. No barriers at this time. Programs/Agencies Involved: ???[facility]ts are not connected to any community agencies that assist them financially. Children Services/Legal Issues:??? No history of children services involvement. No issues or concerns that warrant a referral to be made at this time. Behavioral Health Issues: ??Mental Health History:?Parents deny mental health history or diagnoses. ?? Substance Use History:Parents deny substance use prior to and during . ?? Family History: MOB states that her father has a history of alcoholism. MOB states that due to his history that is why she does not drink or use other substances. MOB states that her father will not be a primary caregiver to baby.? Drug Screens: No drug screens observed during chart review. Family/Social Stressors:? Parents state that they have questions regarding how to obtain childcare assistance. MOB states that both parents have to currently work and the cost of childcare is astronomical. MOB states that they are just wondering how other families afford childcare when both parents have to work. 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 not working because the cost of day care is so expensive. Zafar encouraged parents to look into receiving Title XX through [employer] services, or asking around for an in- home attendant children's institution provider that may cost a fraction of the hughes compared to daycare. Support Systems: Parents report that paternal grandparents are their biggest supports. Depression/Shaken Baby/Safe Sleeping: Zafar educated parents on signs and symptoms of baby blues and mood and anxiety disorders to be mindful of. JOSSIE states that if MOB were to struggle with her mental health he would be able to recognize that, and he would know how to help and support her. Zafar educated parents on shaken baby prevention and ABCs of safe sleep. Parents express understanding. ASSESSMENT:? MOB and baby admitted following labor and delivery. MOB understands importance of being mindful of her genetic disposition of alcoholism and states that she has healthy and appropriate coping skills. Parents were talkative and asking appropriate questions regarding how to obtain cost effective childcare once both parents are returned to work. Parents have obtained everything they need for baby, and have supports, although limited, found in each other and paternal grandparents. MOB was observed laying comfortably in bed holding baby and being attentive to her lovingly and appropriately. FOB was observed to be a supportive partner and able to recognize MOB needs during period. PLAN:?? No other services requested or indicated. MOB and baby to be discharged when medically ready. Parents were provided literature regarding: signs and symptoms of baby blues and mood and anxiety disorders, Help Me Grow, shaken baby prevention, ABCs of safe sleep and a list of county resources that are available for them should any needs present themselves. Sharon Godwin, HOME HEALTH ADMINISTRATOR, [employer]
== END 2024-04-17 13:35 | disposition home or self-care (01) | DRG 807 ==
PROVIDERS: Admitting Provider Advanced Practice Midwife; Referring Provider Obstetrics & Gynecology; Visit Provider Obstetrics & Gynecology
DX: O99.02 Anemia complicating childbirth (principal); Z37.0 Single live birth; D56.3 Thalassemia minor; O76 Abnormality in fetal heart rate and rhythm complicating labor and delivery; Z3A.39 39 weeks gestation of pregnancy; O34.03 Maternal care for unspecified congenital malformation of uterus, third trimester; Q51.3 Bicornate uterus; O69.81X0 Labor and delivery complicated by cord around neck, without compression, not applicable or unspecified
CPT/HCPCS: 59025; 59050; 85025; 86780; 86850; 86900; 86901; 99221; J7030; J7120; A4216; G0378; J2405